=== PATIENT | male | born 1965 | race Caucasian/White ===

== ENCOUNTER 2020-09-28 16:27 | Emergency (ER) | payer MEDICAID ==
[~2020-09-28] VITALS: Ht 170.2 cm; Wt 90.0 kg
[2020-09-28] MEDS ORDERED: IBUPROFEN 600MG TABLET PO STA (16:45)
[2020-09-28 17:21] LABS: BASOPHILS % 0.6 % (0.0-2.0); HEMATOCRIT. 43.4 % (42.0-52.0); HEMOGLOBIN. 15.8 g/dL (14.0-18.0); LYMPHOCYTES % 15.3 % (20.0-50.0); MEAN CORPUSCULAR HEMOGLOBIN 31.6 pg (28.0-32.0); MEAN CORPUSCULAR VOLUME 86.5 fL (80.0-94.0); MEAN PLATELET VOLUME 9.1 fl (7.4-10.4); MONOCYTES % 9.2 % (2.0-8.0); NEUTROPHILS % 74.9 % (40.0-76.0); PLATELET 161 x1000/uL (130-400); RED BLOOD CELL COUNT 5.01 mill/uL (4.7-6.1); RED CELL DISTRIBUTION WIDTH 13.9 % (11.6-14.6)
[2020-09-28 17:28] LABS: CHLORIDE 85 mEq/L (98-107)
[2020-09-28 17:35] LABS: ETHANOL BLOOD < 10 mg/dL
[2020-09-28 20:29] LABS: METHADONE URINE SCREEN NEGATIVE (NEGATIVE); OPIATES URINE SCREEN NEGATIVE (NEGATIVE)
[2020-09-28 20:30] LABS: *AMPHETAMINES SCREEN URINE NEGATIVE (NEGATIVE); *BARBITURATES SCREEN URINE NEGATIVE (NEGATIVE); *BENZODIAZEPINES SCREEN URINE NEGATIVE (NEGATIVE); *COCAINE SCREEN URINE NEGATIVE (NEGATIVE); PHENCYCLIDINE URINE SCREEN NEGATIVE (NEGATIVE)
[2020-09-28 20:32] LABS: CANNABINOID URINE SCREEN NEGATIVE (NEGATIVE)
[2020-09-28 22:12] LABS: CLARITY URINE CLEAR (CLEAR); COLOR URINE YELLOW (YELLOW); KETONES URINE NEGATIVE (NEGATIVE); LEUKOCYTE ESTERASE URINE NEGATIVE (NEGATIVE); NITRITE URINE NEGATIVE (NEGATIVE); OCCULT BLOOD URINE 2+ (NEGATIVE); PROTEIN URINE 1+ (NEGATIVE)
[2020-09-28] MEDS ORDERED: IBUP-2029 MT (22:26)
[2020-09-28 22:54] VITALS: BP 112/55
== END 2020-09-28 22:55 | disposition home or self-care (01) ==
LOC: ER 16:27
DX: R51.9 Headache, unspecified (principal); R07.9 Chest pain, unspecified; R31.9 Hematuria, unspecified
CPT/HCPCS: 36415; 71045; 80053; 80305; 80320; 81003; 85025; 93005; 99285; G0480